=== PATIENT | male | born 1950 | race Caucasian/White ===

== ENCOUNTER 2025-02-05 13:07 | Emergency (ER) | payer MEDICARE, OTHER, SELFPAY ==
[2025-02-05] VITALS (35 sets, daily range): BP systolic 118–153; BP diastolic 77–97; PULSE 106–118; RESP 15–25; TEMP 37.8–39.1; O2SAT 91–99
--- NOTE | ~2025-02-05 | XR_ITS ---
Examination: XR chest 1V portable Clinical History: cough Comparison: None Technique: PA and Lateral Findings: Cardiomediastinal silhouette normal size and configuration. Lungs clear. No acute bony abnormality. IMPRESSION: 1. No acute cardiopulmonary findings. Reviewed, dictated and finalized at location R. [facility] AND SPEECH ASSISTANT
--- NOTE | 2025-02-05 13:17 | PC.NURSE ---
covid swab sent to lab
--- NOTE | 2025-02-05 13:20 | ED_ITS ---
HPI - General Adult General Chief complaint: Upper Respiratory Infection <Milan Leon MD - Last Filed: 02/05/25 13:29> Stated complaint: unwell <Milan Leon MD - Last Filed: 02/05/25 13:29> Time Seen by Provider: 02/05/25 13:16 <Milan Leon MD - Last Filed: 02/05/25 13:29> Source: patient <Milan Leon MD - Last Filed: 02/05/25 13:29> Mode of arrival: wheelchair <Milan Leon MD - Last Filed: 02/05/25 13:29> Limitations: no limitations <Milan Leon MD - Last Filed: 02/05/25 13:29> History of Present Illness HPI narrative: 74-year-old with a history of hypertension, diabetes with brought having fever, confusion, mild weakness since yesterday. Patient states that his symptoms started on Monday. He denies any nausea, vomiting or abdominal pain. New lives by himself. [facility] and all he remembersone of the medication which is metformin 500 mg p.o. b.i.d. <Milan Leon MD - Last Filed: 02/05/25 13:29> Related Data Home medications: Home Medications ?Medication ?Instructions ?Recorded ?Confirmed ?Last Taken ?Type cholecalciferol (vitamin D3) 125 125 mcg PO DAILY 01/14 06/07 Unknown History mcg (5,000 unit) capsule cyanocobalamin (vitamin B-12) 500 500 mcg PO DAILY Unknown History mcg tablet empagliflozin 10 mg tablet 10 mg PO DAILY 02/05/25 Un known History hydrochlorothiazide 25 mg tablet 25 mg PO DAILY Unknown History metformin 1,000 mg tablet 1,000 mg PO BID 02/05/25 Un known History metoprolol succinate 25 mg 25 mg PO DAILY 02/05/25 Un known History tablet,extended release 24 hr sildenafil 25 mg tablet 25 mg PO DAILY PRN sexual ac tivity 02/05/25 Unknown History simvastatin 40 mg tablet 40 mg PO DAILY 02/05/25 Unk nown History <Milan Leon MD - Last Filed: 02/05/25 13:29> Allergies/adverse reactions: Allergies Allergy/AdvReac Type Severity Reaction Status Date / Time No Known Allergies Allergy Verified 02/05/25 13:16 <Milan Leon MD - Last Filed: 02/05/25 13:29> Review of Systems 2 Review of Systems: All systems reviewed & are unremarkable except as noted in HPI and below <Milan Leon MD - Last Filed: 02/05/25 13:29> Constitutional: Constitutional: Reports fever(s) <Milan Leon MD - Last Filed: 02/05/25 13:29> Eyes: Eyes: Reports no additional eye complaints <Milan Leon MD - Last Filed: 02/05/25 13:29> ENT: Reports system reviewed and no additional complaints, except as documented <Milan Leon MD - Last Filed: 02/05/25 13:29> Cardiovascular: Cardiovascular: Reports no additional cardiovascular complaints <Milan Leon MD - Last Filed: 02/05/25 13:29> Respiratory: Respiratory: Reports as per HPI <Milan Leon MD - Last Filed: 02/05/25 13:29> Gastrointestinal: Gastrointestinal: Reports no additional gastrointestinal complaints <Milan Leon MD - Last Filed: 02/05/25 13:29> Genitourinary: Genitourinary: Reports no additional male genitourinary complaints <Milan Leon MD - Last Filed: 02/05/25 13:29> Musculoskeletal: Musculoskeletal: Reports no additional musculoskeletal complaints <Milan Leon MD - Last Filed: 02/05/25 13:29> Integumentary/Breasts: Skin/Breast: Reports system reviewed and no additional complaints, except as docu <Milan Leon MD - Last Filed: 02/05/25 13:29> Neurologic: Reports system reviewed and no additional complaints, except as documented <Milan Leon MD - Last Filed: 02/05/25 13:29> Psychiatric: Psychiatric: Reports no additional psychiatric complaints < Milan Leon MD - Last Filed: 02/05/25 13:29> Endocrine: Endocrine: Reports no additional endocrine complaints <Milan Leon MD - Last Filed: 02/05/25 13:29> Hematologic/Lymphatic: Hematologic/Lymphatic: Reports no additional hematologic/lymphatic complaints <Milan Leon MD - Last Filed: 02/05/25 13:29> Allergic/Immunologic: Allergic/Immunologic: Reports no additional allergic/immunologic complaints <Milan Leon MD - Last Filed: 02/05/25 13:29> Exam 2 Narrative: GENERAL: Well-appearing, well-nourished, and in no acute distress. HEAD: Normocephalic, atraumatic. EYES: PERRLA and EOMI. ENT: Nares clear, no rhinorrhea or epistaxis. Mucous membranes moist. NECK: Supple. CHEST: Clear to auscultation. No respiratory distress. HEART: Regular rate and rhythm. No murmur heard. Normal peripheral pulses. ABDOMEN: Soft, nontender, nondistended, normal active bowel sounds. EXTREMITIES: Normal range of motion. No edema. SKIN: Warm, dry, no rash. NEURO: No focal deficits. Alert and oriented x3. PSYCH: Normal mood and affect. <Milan Leon MD - Last Filed: 02/05/25 13:29> Course Vital Signs Vital signs: Vital Signs Temperature 38.7 C H 02/05/25 13:08 Pulse Rate 115 H 02/05/25 13:08 Respiratory Rate 18 02/05/25 13:08 Blood Pressure 153/90 H 02/05/25 13:08 Pulse Oximetry 97 02/05/25 13:08 Oxygen Delivery Room Air 02/05/25 13:08 Temperature 39.1 C H 02/05/25 14:26 Pulse Rate 113 H 02/05/25 14:26 Respiratory Rate 18 02/05/25 14:26 Blood Pressure 127/85 02/05/25 14:26 Pulse Oximetry 93 02/05/25 14:26 Oxygen Delivery Room Air 02/05/25 14:26 <Milan Leon MD - Last Filed: 02/05/25 13:29> Vital Signs Temperature 38.7 C H 02/05/25 13:08 Pulse Rate 115 H 02/05/25 13:08 Respiratory Rate 18 02/05/25 13:08 Blood Pressure 153/90 H 02/05/25 13:08 Pulse Oximetry 97 02/05/25 13:08 Oxygen Delivery Room Air 02/05/25 13:08 Temperature 39.1 C H 02/05/25 14:26 Pulse Rate 113 H 02/05/25 14:26 Respiratory Rate 18 02/05/25 14:26 Blood Pressure 127/85 02/05/25 14:26 Pulse Oximetry 93 02/05/25 14:26 Oxygen Delivery Room Air 02/05/25 14:26 <Bryant Noble MD - Last Filed: 02/05/25 16:00> MDM MDM Narrative Medical decision making narrative: Patient was accepted to the [facility] for further treatment and evaluation. He is going to be admitted for confusion with his influenza a and he lives alone. < Bryant Noble MD - Last Filed: 02/05/25 16:00> Differential Diagnosis Differential Diagnosis: Influenza a, COVID <Bryant Noble MD - Last Filed: 02/05/25 16:00> Lab Data Result diagrams: 02/05/25 13:34 02/05/25 13:34 <Milan Leon MD - Last Filed: 02/05/25 13:29> Labs: Lab Results 02/05/25 02/05/25 02/05/25 Range/Units 13:09 13:32 13:34 WBC 7.3 (4.8-10.8) K/mm3 RBC 5.06 (4.70-6.10) M/mm3 Hgb 15.5 H (12.4-15.3) g/dL Hct 46.6 H (37.0-46.0) % MCV 92.1 (78.0-102.0) fL MCH 30.6 (27.0-31.0) pg MCHC 33.3 (32-36) g/dL RDW 13.7 (11.6-14.4) % Plt Count 134 L (150-420) K/mm3 MPV 10.0 (8.7-11.0) fl Immature Gran % (Auto) 0.4 H (0.0-0.0) % Neut % (Auto) 81.0 H (50.0-70.0) % Lymph % (Auto) 7.7 L (18.0-42.0) % [place] % (Auto) 10.5 (2.0-11.0) % Eos % (Auto) 0.0 L (1.0-6.0) % Baso % (Auto) 0.4 (0.0-1.0) % Lymph # (Auto) 0.56 L (1.10-4.50) K/mm3 [place] # (Auto) 0.77 (0.10-0.90) K/mm3 Eos # (Auto) 0.00 L (0.02-0.50) K/mm3 Baso # (Auto) 0.03 (0.00-0.10) K/mm3 Abs Immat Gran (auto) 0.03 H (0.00-0.00) K/mm3 Absolute Neuts (auto) 5.91 (1.70-7.20) K/mm3 Absolute Nucleated RBC 0.00 (0.00-0.00) K/mm3 Nucleated RBC % 0.0 (0-0.0) % % Immature Plt Fraction 2.2 (1.0-7.0) % Sodium 137 (137-145) mmol/L Potassium 3.8 (3.4-5.0) mmol/L Chloride 98 (98-107) mmol/L Carbon Dioxide 23 (22-30) mmol/L Anion Gap 16 H (4-12) mmol/L BUN 23 H (9-20) mg/dL Creatinine 0.94 (0.7-1.3) mg/dL Estim Creat Clear Calc 60 ml/min Estimated GFR > 60 (59 - ) Glucose 149 H (65-110) mg/dL Calculated Osmolality 290 (285-295) mOsm/kg Lactic Acid 1.9 (0.7-2.0) mmol/L Calcium 8.8 (8.4-10.2) mg/dL Total Bilirubin 1.2 (0.2-1.3) mg/dL AST 49 (17-59) U/L ALT 41 (6-50) U/L Alkaline Phosphatase 49 (38-126) U/L Total Protein 8.2 (6.3-8.2) g/dL Albumin 5.1 (3.5-5.1) g/dL Influenza A (RT-PCR) Positive A (Negative) Influenza B (RT-PCR) Negative (Negative) RSV (RT-PCR) Negative (Negative) SARS-CoV-2 RNA (RT-PCR) Negative (Negative) Group A Strep (PCR) Not detected (Negative) <Milan Kanumuri, MD - Last Filed: 02/05/25 13:29> Lab Results 02/05/25 02/05/25 02/05/25 Range/Units 13:09 13:32 13:34 WBC 7.3 (4.8-10.8) K/mm3 RBC 5.06 (4.70-6.10) M/mm3 Hgb 15.5 H (12.4-15.3) g/dL Hct 46.6 H (37.0-46.0) % MCV 92.1 (78.0-102.0) fL MCH 30.6 (27.0-31.0) pg MCHC 33.3 (32-36) g/dL RDW 13.7 (11.6-14.4) % Plt Count 134 L (150-420) K/mm3 MPV 10.0 (8.7-11.0) fl Immature Gran % (Auto) 0.4 H (0.0-0.0) % Neut % (Auto) 81.0 H (50.0-70.0) % Lymph % (Auto) 7.7 L (18.0-42.0) % [place] % (Auto) 10.5 (2.0-11.0) % Eos % (Auto) 0.0 L (1.0-6.0) % Baso % (Auto) 0.4 (0.0-1.0) % Lymph # (Auto) 0.56 L (1.10-4.50) K/mm3 [place] # (Auto) 0.77 (0.10-0.90) K/mm3 Eos # (Auto) 0.00 L (0.02-0.50) K/mm3 Baso # (Auto) 0.03 (0.00-0.10) K/mm3 Abs Immat Gran (auto) 0.03 H (0.00-0.00) K/mm3 Absolute Neuts (auto) 5.91 (1.70-7.20) K/mm3 Absolute Nucleated RBC 0.00 (0.00-0.00) K/mm3 Nucleated RBC % 0.0 (0-0.0) % % Immature Plt Fraction 2.2 (1.0-7.0) % Sodium 137 (137-145) mmol/L Potassium 3.8 (3.4-5.0) mmol/L Chloride 98 (98-107) mmol/L Carbon Dioxide 23 (22-30) mmol/L Anion Gap 16 H (4-12) mmol/L BUN 23 H (9-20) mg/dL Creatinine 0.94 (0.7-1.3) mg/dL Estim Creat Clear Calc 60 ml/min Estimated GFR > 60 (59 - ) Glucose 149 H (65-110) mg/dL Calculated Osmolality 290 (285-295) mOsm/kg Lactic Acid 1.9 (0.7-2.0) mmol/L Calcium 8.8 (8.4-10.2) mg/dL Total Bilirubin 1.2 (0.2-1.3) mg/dL AST 49 (17-59) U/L ALT 41 (6-50) U/L Alkaline Phosphatase 49 (38-126) U/L Total Protein 8.2 (6.3-8.2) g/dL Albumin 5.1 (3.5-5.1) g/dL Influenza A (RT-PCR) Positive A (Negative) Influenza B (RT-PCR) Negative (Negative) RSV (RT-PCR) Negative (Negative) SARS-CoV-2 RNA (RT-PCR) Negative (Negative) Group A Strep (PCR) Not detected (Negative) <Bryant Noble MD - Last Filed: 02/05/25 16:00> Imaging Data Attestation: I personally reviewed and interpreted this imaging study as follows: <Bryant Noble MD - Last Filed: 02/05/25 16:00> Radiologist's impression: ITS Impressions Chest X-Ray 02/05/25 13:27 IMPRESSION: 1. No acute cardiopulmonary findings. <Milan Leon MD - Last Filed: 02/05/25 13:29> ITS Impressions Chest X-Ray 02/05/25 13:27 IMPRESSION: 1. No acute cardiopulmonary findings. <Bryant Noble MD - Last Filed: 02/05/25 16:00> Discharge Plan Discharge Clinical Impression: Influenza A, Acute confusion <Milan Leon MD - Last Filed: 02/05/25 13:29> Patient Disposition: [facility] <Milan Leon MD - Last Filed: 02/05/25 13:29> Condition: Stable <Milan Leon MD - Last Filed: 02/05/25 13:29> Patient Language: Arabic <Milan Leon MD - Last Filed: 02/05/25 13:29> Prescriptions: No Action metoprolol succinate 25 mg tablet extended release 24 hr 25 mg PO DAILY simvastatin 40 mg tablet 40 mg PO DAILY cholecalciferol (vitamin D3) 125 mcg (5,000 unit) capsule 125 mcg PO DAILY cyanocobalamin (vitamin B-12) 500 mcg tablet 500 mcg PO DAILY empagliflozin 10 mg tablet 10 mg PO DAILY hydrochlorothiazide 25 mg tablet 25 mg PO DAILY metformin 1,000 mg tablet 1,000 mg PO BID sildenafil 25 mg tablet 25 mg PO DAILY PRN (Reason: sexual activity) Rx Instructions: administer 30 minutes to 4 hours before activity <Milan Leon MD - Last Filed: 02/05/25 13:29> Follow-up/Referrals: UNKNOWN,DOCTOR [Non-Staff] <Milan Leon MD - Last Filed: 02/05/25 13:29> Time of Disposition: 16:00 <Milan Leon MD - Last Filed: 02/05/25 13:29> 16:00 <Bryant Noble MD - Last Filed: 02/05/25 16:00>
[2025-02-05] MEDS: ACETAMINOPHEN 325 MG TABLET 650 MG PO (13:24)
[2025-02-05] MEDS: SODIUM CHLORIDE 0.9% IV 1,000 ML 150 ML IV CONT (13:32)
[2025-02-05 13:41] LABS: Hematocrit 46.6 % (37.0-46.0); Hemoglobin 15.5 g/dL (12.4-15.3); Immature Granulocyte Percent A 0.4 % (0.0-0.0); Immature Platelet Fraction Pct 2.2 % (1.0-7.0); Lymphocytes Absolute Auto 0.56 K/mm3 (1.10-4.50); Mean Corpuscular HGB Conc 33.3 g/dL (32-36); Mean Corpuscular Hemoglobin 30.6 pg (27.0-31.0); Mean Corpuscular Volume 92.1 fL (78.0-102.0); Nucleated Red Blood Cells Absolute Auto 0.00 K/mm3 (0.00-0.00); Nucleated Red Blood Cells Perc 0.0 % (0-0.0); Platelet Count Result 134 K/mm3 (150-420); Red Blood Count 5.06 M/mm3 (4.70-6.10); White Blood Count 7.3 K/mm3 (4.8-10.8)
[2025-02-05 13:43] LABS: Strep Group A RT-PCR NOT DETECTED (Negative)
[2025-02-05 13:52] LABS: Alanine Aminotransferase 41 U/L (6-50); Albumin Level 5.1 g/dL (3.5-5.1); Alkaline Phosphatase 49 U/L (38-126); Anion Gap 16 mmol/L (4-12); Aspartate Amino Transferase 49 U/L (17-59); Bilirubin,Total 1.2 mg/dL (0.2-1.3); Blood Urea Nitrogen 23 mg/dL (9-20); Calcium 8.8 mg/dL (8.4-10.2); Carbon Dioxide 23 mmol/L (22-30); Chloride 98 mmol/L (98-107); Estimated CRCL calculation 60 ml/min; Estimated Glomerular Filt Rate > 60; Glucose 149 mg/dL (65-110); Osmolality Calculated 290 mOsm/kg (285-295); Potassium 3.8 mmol/L (3.4-5.0); Sodium 137 mmol/L (137-145); Total Protein 8.2 g/dL (6.3-8.2)
[2025-02-05 13:56] LABS: Influenza A QL RT-PCR Positive (Negative); Influenza B QL RT-PCR Negative (Negative); RSV RNA, RT-PCR Negative (Negative); SARS-CoV-2 RNA PCR Negative (Negative)
--- NOTE | 2025-02-05 14:09 | PC.NURSE ---
call to [facility] for updated medication list.
--- NOTE | 2025-02-05 14:19 | PC.NURSE ---
cell phone left with pt and patrick emiliaraj took wallet home. patrick phone [phone], elliemissy [phone].
--- NOTE | 2025-02-05 16:11 | PC.NURSE ---
[id number] call from [facility], zo ayala, wil key, director at [facility], attempt to have [facility] take pt, marjorie rogers. if unable then [facility] will take pt.
--- NOTE | 2025-02-05 16:14 | PC.NURSE ---
call placed to [facility] , requested [facility] to transfer pt.
--- NOTE | 2025-02-05 16:21 | PC.NURSE ---
[facility] report given. awaiting call back if staffing is available for transfer.
--- NOTE | 2025-02-08 13:09 | PC.NURSE ---
blood cultures x2 reviewed. no growth in 24 hours
--- NOTE | 2025-02-09 12:45 | PC.NURSE ---
final blood cultures x2 reviewed, no growth in 48 hours
== END 2025-02-05 17:07 ==
PROVIDERS: Emergency Medicine; Emergency Provider Family Medicine; PCP Internal Medicine
DX: J10.1 Influenza due to other identified influenza virus with other respiratory manifestations (principal); F44.89 Other dissociative and conversion disorders; I10 Essential (primary) hypertension; E11.9 Type 2 diabetes mellitus without complications; Z79.84 Long term (current) use of oral hypoglycemic drugs; Z79.899 Other long term (current) drug therapy; Z20.822 Contact with and (suspected) exposure to COVID-19
CPT/HCPCS: 36415; 71045; 80053; 83605; 85025; 85055; 87637; 87651; 96360; 99285; A9270; J7030